=== PATIENT | female | born 1990 | race Caucasian/White ===

== ENCOUNTER 2017-10-15 19:46 | Emergency (ER) | payer OTHER, SELFPAY ==
--- NOTE | 2017-10-15 19:47 | ED_ITS ---
HPI - Extremity Injury (Upper) <VIOLETTA Evans - Last Filed: 10/15/17 21:04> General Chief Complaint: Wound/Laceration Stated Complaint: CUT ON LEFT INDEX FINGER Time Seen by Provider: 10/15/17 19:46 Source: patient Mode of arrival: ambulatory Limitations: no limitations History of Present Illness HPI narrative: 27-year-old healthy female that is a nonsmoker here for complaint of having laceration to distal left index finger. She states that she was using a knife to cut down earlier today and accidentally cut the left tip of her finger. She states that her tetanus is up-to-date. She denies any other injuries or concerns. Injury happened just prior to arrival MD complaint: injury to: left and finger Review of Systems <VIOLETTA Evans - Last Filed: 10/15/17 21:04> Constitutional Denies chills, Denies fever(s), Denies lethargy and Denies weakness Eyes Denies change in vision, Denies eye discharge, Denies irritation and Denies loss of vision ENT Ears, Nose, Mouth, and Throat: Denies change in voice, Denies neck pain and Denies sore throat Cardiovascular Denies chest pain, Denies irregular heart rhythm, Denies lightheadedness, Denies palpitations, Denies dyspnea, Denies dyspnea on exertion and Denies orthopnea Respiratory Denies cough, Denies dyspnea, Denies dyspnea on exertion and Denies wheezing Gastrointestinal Gastrointestinal: Denies abdominal pain, Denies change in bowel habits, Denies diarrhea, Denies nausea and Denies vomiting Genitourinary Denies hematuria, Denies flank pain, Denies urinary incontinence and Denies urinary urgency Musculoskeletal Denies neck pain Comments: Laceration left index finger Integumentary/Breasts Denies pruritus, Denies erythema, Denies rash and Denies wounds Neurologic Denies confusion, Denies loss of vision and Denies weakness Psychiatric Denies anxiety, Denies confusion, Denies depression, Denies homicidal ideation and Denies suicidal ideation Endocrine Denies palpitations Hematologic/Lymphatic Denies easy bruising Allergic/Immunologic Denies wheezing Exam <VIOLETTA Evans - Last Filed: 10/15/17 21:04> Initial Vital Signs Initial Vital Signs: Vital Signs Temperature 97.2 F L 10/15/17 19:50 Pulse Rate 58 L 10/15/17 19:50 Respiratory Rate 18 10/15/17 19:50 Blood Pressure 124/80 10/15/17 19:50 Pulse Oximetry 100 10/15/17 19:50 Const General: cooperative and well developed Nutritional Appearance: well nourished Orientation: alert, awake, oriented x3 and not confused [facility] Mouth: oral mucosae normal and moist mucous membranes Eyes Conjunctivae: conjunctivae normal Sclera: sclerae normal Pupils: PERRL EOM: EOM intact bilaterally Resp Effort & Inspection: normal respiratory effort, able to speak in complete sentences, no respiratory distress and no use of accessory muscles Auscultation: clear to auscultation bilaterally, no rales, no rhonchi and no wheezes Cardio Rate: regular rate Rhythm: regular rhythm Heart Sounds: no click, no gallops, no murmurs and no rubs Pulses: normal peripheral pulses Skin General: no rashes or lesions noted, No jaundice and No petechiae Neuro General: alert, oriented x3, gait normal and no focal motor deficits Speech: speech normal Extrem Other: 1 cm flap laceration to the distal left index finger. Distal sensation is intact. Distal range of motion is intact. Distal cap refill less than 2 sec. <Carlos Nicolas MD - Last Filed: 10/15/17 21:52> Initial Vital Signs Initial Vital Signs: Vital Signs Temperature 97.2 F L 10/15/17 19:50 Pulse Rate 58 L 10/15/17 19:50 Respiratory Rate 18 10/15/17 19:50 Blood Pressure 124/80 10/15/17 19:50 Pulse Oximetry 100 10/15/17 19:50 Procedures <VIOLETTA Evans - Last Filed: 10/15/17 21:04> Laceration Repair Laceration 1: Site: other (Index finger) Side (If applicable): left Size (cm): 1 Description: flap Depth: simple, single layer Local Anesthetic: lidocaine 1% Amount of anesthesia used (mL): 1 Pre-repair: wound explored and irrigated extensively Skin layer closed with: nylon Size (cm): 5-0 Number of sutures: 4 Technique: simple, interrupted Course <VIOLETTA Evans - Last Filed: 10/15/17 21:04> Vital Signs - 8 hr 10/15/17 19:50 10/15/17 19:55 Temperature 97.2 F L 97.2 F L Pulse Rate 58 L 58 L Respiratory Rate 18 18 Blood Pressure 124/80 Blood Pressure [Right Arm] 124/80 Pulse Oximetry 100 100 <Carlos Nicolas MD - Last Filed: 10/15/17 21:52> Vital Signs - 8 hr 10/15/17 19:50 10/15/17 19:55 Temperature 97.2 F L 97.2 F L Pulse Rate 58 L 58 L Respiratory Rate 18 18 Blood Pressure 124/80 Blood Pressure [Right Arm] 124/80 Pulse Oximetry 100 100 [facility] - Extremity Injury (Upper) <VIOLETTA Evans - Last Filed: 10/15/17 21:04> [facility] Narrative Medical decision making narrative: Flap laceration to left index finger closed with 4 sutures. Wound dressed with bacitracin and a dressing. Sutures removed in 7-10 days. Use [id number] Tylenol Motrin as needed for any discomfort. Keep wound area clean and dry for next 36 hr. After this timeframe may shower briefly dry wound after shower redressed bacitracin and dressing. Dress wound daily with bacitracin and dressed until healed. For any worsening symptoms return to the emergency room. Discharge Plan Departure Patient Disposition: Home Clinical Impression: Laceration of left index finger Discharge Date/Time: 10/15/17 20:26 Interventions: ED Discharge Assessment Last Done: 10/15/17 20:26 Instructions: DI for Laceration Repair -- Finger Activity Restrictions/Additional Instructions: Laceration to left index finger was closed with 4 sutures. Sutures to be removed in 7-10 days. Use [id number] Tylenol or Motrin as needed for any discomfort. Keep wound area clean and dry for next 36 hr. After this timeframe may shower briefly dry wound after shower redressed bacitracin and dressing. Dress wound daily with bacitracin and dressed until healed. For any worsening symptoms return to the emergency room. Referrals: [facility] [Provider Group] <Carlos Nicolas MD - Last Filed: 10/15/17 21:52> Cosign ED Attending Crature Attestation: I was present in the ER at the time of this patient's care. I was available for verbal consultation, or to see the patient directly if needed. I agree with the assessment, and care plan.
[2017-10-15 19:50] VITALS: BP 124/80; PULSE 58; RESP 18; TEMP 36.2; O2SAT 100
[2017-10-15 19:55] VITALS: BP 124/80; PULSE 58; RESP 18; TEMP 36.2; O2SAT 100; BMI 26.5
== END 2017-10-15 20:26 | disposition home or self-care (01) ==
PROVIDERS: Emergency Provider Nurse Practitioner Family
DX: S61.211A Laceration without foreign body of left index finger without damage to nail, initial encounter (principal); W26.0XXA Contact with knife, initial encounter
CPT/HCPCS: 12001; 12031; 99283

== ENCOUNTER → 2017-12-21 09:28 | Outpatient (CLI) | payer OTHER, SELFPAY | DX: Z23 Encounter for immunization (principal) | CPT/HCPCS: 90471; 90686 ==

== ENCOUNTER 2018-01-30 22:05 | Emergency (ER) | payer OTHER, SELFPAY ==
[2018-01-30 22:37] VITALS: BP 135/81; PULSE 64; RESP 16; TEMP 36.9; O2SAT 100; BMI 24.7
[2018-01-30 23:11] LABS: Alanine Aminotransferase 28 IU/L (9-52)
[2018-01-31] MEDS: HEPATITIS B IMMUNE GLOBULIN 5 ML VIAL 3.8 ML IM (00:06)
[2018-01-31 00:07] LABS: Hepatitis B Surface Antigen NEGATIVE s/c (NEGATIVE)
[2018-01-31 00:26] LABS: HIV 1 and 2 Antibody NEGATIVE (NEGATIVE); Hep C Virus Ab w/Reflex Quant NEGATIVE s/c (NEGATIVE)
[2018-01-31 02:17] VITALS: BP 112/63; PULSE 74; RESP 20; TEMP 36.4; O2SAT 98
--- NOTE | 2018-01-31 03:17 | ED_ITS ---
HPI - General Adult General Chief complaint: Blood/Body fluid exposure Stated complaint: Needle stick ring finger left hand Time Seen by Provider: 01/30/18 22:38 Source: patient Mode of arrival: ambulatory Limitations: no limitations History of Present Illness HPI narrative: Patient is a 27-year-old female who presents after a needlestick injury to her left ring finger. She says she was giving a patient insulin when she then struck stuck herself. She did bleed afterwards. She states that she is going through a 2nd round of hepatitis-B vaccination her antibody screen was negative. Otherwise her immunizations are up date Related Data Allergies Allergy/AdvReac Type Severity Reaction Status Date / Time No Known Drug Allergies Allergy Verified 01/30/18 22:40 Review of Systems Review of Systems GENERAL: Denies chills,fever HEENT: Denies throat pain RESPIRATORY: Denies dyspnea, cough, wheezing CARDIOVASCULAR: Denies chest pain, palpitations GASTROINTESTINAL: Denies nausea, vomiting MUSCULOSKELETAL: Denies extremity pain, injury SKIN: See HPI NEUROLOGIC: Denies weakness, dizziness, headache, numbness 8 point review of systems is negative except for those stated above and HPI [facility] Medical History Healthy adult (Acute) Social History Smoking Status: Never smoker Exam Initial Vital Signs Initial Vital Signs: Vital Signs Temperature 98.4 F 01/30/18 22:37 Pulse Rate 64 01/30/18 22:37 Respiratory Rate 16 01/30/18 22:37 Blood Pressure 135/81 01/30/18 22:37 Pulse Oximetry 100 01/30/18 22:37 GENERAL: Well-appearing, well-nourished and in no acute distress. CARDIOVASCULAR: peripheral pulses in tact, cap refill <2 sec RESPIRATORY: No respiratory distress, speaks in full sentences without difficulty EXTREMITIES: Normal range of motion, no clubbing or edema. Neurovascularly intact NEUROLOGICAL: Cranial nerves II through XII grossly intact. Normal gait and speech. SKIN: Warm, dry, no petechiae, no rashes or lesions. Left ring finger does have puncture wound noted Course Orders Ordered: Discontinued Medications Hepatitis B Immune Globulin (Nabi-Hb) 3.8 ml 0.06 ml/kg (3.8 ml) IM NOW ONE Stop: 01/30/18 23:03 Last Admin: 01/31/18 00:06 Dose: 3.8 ml Vital Signs - 8 hr 01/30/18 22:37 01/31/18 02:17 Temperature 98.4 F 97.6 F Pulse Rate 64 74 Respiratory Rate 16 20 Blood Pressure 135/81 Blood Pressure [Left Arm] 112/63 Pulse Oximetry 100 98 Medical Decision Making Lab Data Lab results reviewed: Yes I reviewed the patient's lab results. Lab Results 01/30/18 01/30/18 Range/Units 22:50 22:50 ALT 28 (9-52) IU/L Hep Bs Antigen Negative (NEGATIVE) s/c Hepatitis C Antibody Negative (NEGATIVE) s/c HIV 1&2 Antibody Negative (NEGATIVE) MDM Narrative Medical decision making narrative: Patient hepatitis surface antibody is still pending and was a send out. Patient is empirically given hepatitis B immunoglobulin based from what she has told me. I have reviewed her old records no previous testing of hepatitis antigen antibody at [facility]. She does have previous TB testing. Source has been drawn. Patient was waiting for source HIV testing to decide is if she was going to take antivirals. At this time she does not need HIV antiviral. Sources hepatitis B surface antigen is negative. Recommend outpatient follow-up in regards to her hepatitis vaccination and status. Discharge Plan Departure Patient Disposition: Home Clinical Impression: Needle exposure, Exposure to blood or body fluid Discharge Date/Time: 01/31/18 02:31 Interventions: ED Discharge Assessment Last Done: 01/31/18 02:30 Instructions: DI for Accidental Exposure to Body Fluids Activity Restrictions/Additional Instructions: *You have been diagnosed with needlestick, body fluid exposure *What to do: Hepatitis surface antigen is pending in both you and the source. You have been given 1 dose of hepatitis B immunoglobulin, if you are still negative after 1 month he may require a 2nd dose. Please follow up with provider who is managing her hepatitis vaccine, and Employee Health *Continue to take medications as directed *Follow up with your primary care provider in 2-3 days, follow up with employee health *Return to ER if you should have any new, worsening or concerning symptoms Referrals: Pallavi Coyne ARNP [[facility] [employer]] -
[2018-02-04 15:03] LABS: Hepatitis B Surf Ab Qualitativ Reactive (Nonreactive)
== END 2018-01-31 02:31 | disposition home or self-care (01) ==
PROVIDERS: Emergency Provider Emergency Medicine
DX: S61.235A Puncture wound without foreign body of left ring finger without damage to nail, initial encounter (principal); W46.0XXA Contact with hypodermic needle, initial encounter; Y99.0 Civilian activity done for income or pay
CPT/HCPCS: 90471; 99282; 99283; J1571